=== PATIENT | female | born 1985 | race Caucasian/White ===

== ENCOUNTER 2022-01-29 23:52 | Emergency (ER) | payer SELFPAY ==
[2022-01-30] MEDS ORDERED: Ibuprofen 800 MG TAB ONE (00:28)
[2022-01-30] MEDS ORDERED: Boostrix 0.5 ML (Tdap) VIAL ONE (00:29)
[2022-01-30] MEDS ORDERED: Sulfameth/Trimethoprim DS 800-160mg TAB ONE (00:29)
[2022-01-30] MEDS ORDERED: Bacitracin 1 PK ONE (00:43)
== END 2022-01-30 00:45 | disposition home or self-care (01) ==
LOC: BURERS 23:52
DX: S63.634A Sprain of interphalangeal joint of right ring finger, initial encounter (principal); L02.414 Cutaneous abscess of left upper limb; M79.7 Fibromyalgia; F17.210 Nicotine dependence, cigarettes, uncomplicated; W23.0XXA Caught, crushed, jammed, or pinched between moving objects, initial encounter; Z23 Encounter for immunization; Z87.442 Personal history of urinary calculi
CPT/HCPCS: 90471; 90715

== ENCOUNTER 2022-01-31 23:13 | Emergency (ER) | payer SELFPAY ==
[2022-01-31] MEDS ORDERED: Cephalexin 250 MG CAP ONE (23:41)
[2022-01-31] MEDS ORDERED: Acetaminophen 500 MG TAB ONE (23:41)
== END 2022-01-31 23:46 | disposition home or self-care (01) ==
LOC: BURERS 23:13
DX: L02.414 Cutaneous abscess of left upper limb (principal); F17.210 Nicotine dependence, cigarettes, uncomplicated